=== PATIENT | female | born 2000 | race Caucasian/White ===

== ENCOUNTER 2021-05-08 18:26 | Emergency (ER) | payer OTHER ==
[2021-05-08 18:44] VITALS: BP 116/64; PULSE 80; RESP 16; TEMP 97.9
[2021-05-08 19:00] LABS: Appearance,Urine Clear (Clear); Bilirubin,Urine Negative (Negative); Blood,Urine Negative (Negative); Color,Urine Yellow; Glucose,Urine (UA) Negative (Negative); Ketones,Urine 3+ (Negative); Leukocyte Esterase,Urine Negative (Negative); Nitrite,Urine Negative (Negative); PH, Urine 6.5 (5.0-8.0); Protein,Urine Trace (Negative)
[2021-05-08 22:48] LABS: Basophils # (A) 0.1 k/uL (0-0.2); Basophils % (A) 1 %; Eosinophils # (A) 0.1 k/uL (0-0.7); Eosinophils % (A) 2 %; HCT 40.4 % (34.0-46.0); HGB 13.9 gm/dL (11.4-16.0); Lymphocytes # (A) 2.7 k/uL (1.0-4.8); Lymphocytes % (A) 27 %; MCHC 34.4 g/dL (31.0-37.0); Mean Platelet Volume 9.2; Monocytes # (A) 0.4 k/uL (0-1.0); Monocytes % (A) 4 %; Neutrophils # (A) 6.4 k/uL (1.3-7.7); Neutrophils % (A) 65 %; Platelet Count 220 k/uL (150-450); RBC 4.49 m/uL (3.80-5.40); RDW 13.1 % (11.5-15.5); WBC 9.8 k/uL (4.0-11.0)
--- NOTE | 2021-05-08 23:16 | US ---
EXAMINATION TYPE: Transabdominal DATE OF EXAM: 05/08/2021 11:08 PM COMPARISON: NONE CLINICAL HISTORY: vaginal bleeding, . Vaginal bleeding. Hx 2 miscarriages. A2. EXAM PERFORMED: Transabdominal (TA) EXAM MEASUREMENTS: GESTATIONAL AGE / DATING Physician Established: Not yet established. Dates by LMP: (9 weeks/4 days) EDC: 12/07/2021 Dates by First Scan: This is first scan. Dates by Current Scan for: (10 weeks/0 days) EDC: 12/04/2021 MATERNAL ANATOMY Uterus: 8.9 x 6.3 x 5.8 cm. Anteverted. Right Ovary: 2.8 x 1.9 x 1.4 cm. Left Ovary: 2.6 X 1.7 X 1.5 cm. Post CDS / Adnexa: Appear wnl. Presence of free fluid: None seen. Presence of corpus luteal cyst: Possible within right ovary-Anechoic area seen with peripheral vascul arity: 1.3 x 1.0 x 1.0 cm. Presence of subchorionic bleed: Possible. -Hypoechoic area seen adjacent to the gestational sac: 0.5 x 1.6 x 0.9 cm. GESTATION / SURVEY CRL: 3.14 cm. (10 weeks/0 days) Yolk Sac (normal less than 6mm): 4.3 Heart Rate: 174 bpm. Rhythm: ?Slightly high HR IUP: Viable IUP Date of LMP: 03/02/2021 Beta HcG (if available): Urine hCG available only-detected. IMPRESSION: Ultrasound gestational age is 10 weeks. Possible small subchorionic hemorrhage.
--- NOTE | 2021-05-09 02:35 | ED ---
General Adult HPI - General Chief complaint: Vaginal Bleeding Stated complaint: 9 wks preg/bleeding Time Seen by Provider: 05/08/21 21:54 Source: patient, RN notes reviewed, old records reviewed Mode of arrival: ambulatory Limitations: no limitations - History of Present Illness Initial comments: Patient is a 20-year-old female who is currently approximately 9 weeks has not followed up with her PCP presents emergency department over concern for vaginal spotting earlier. Has a history of 2 prior miscarriages which is why she came to the emergency department for further evaluation. States the spotting began this morning has not continued. Denies any current abdominal pain, cramping. Denies any nausea, vomiting. Tolerated by mouth intake. Denies any chest pain, shortness breath. His no other acute complaint at this time. To for follow-up with her MEDICAL CODING AUDITOR next week. Like to be evaluated. - Related Data Previous Rx's Medication Instructions Recorded Pnv No.95/Ferrous Fum/Folic AC 1 each PO DAILY #30 tablet 05/09/21 [ Multivitamin Tablet] Allergies Allergy/AdvReac Type Severity Reaction Status Date / Time No Known Allergies Allergy Verified 05/08/21 18:44 Review of Systems ROS Statement: Those systems with pertinent positive or pertinent negative responses have been documented in the HPI. Review of Systems: CONST: Denies fever EYES: Denies blurry vision ENT: Denies nasal congestion C/V: Denies Chest pain RESP: Denies shortness of breath GI: Denies abdominal pain : Denies dysuria SKIN: Denies rash. MSK: Denies joint pain. NEURO: Denies headache ROS Other: All systems not noted in ROS Statement are negative. Past Medical History Past Medical History: No Reported History History of Any Multi-Drug Resistant Organisms: None Reported Past Surgical History: No Surgical Hx Reported Past Psychological History: Anxiety, Depression Smoking Status: Current every day smoker Past Alcohol Use History: None Reported Past Drug Use History: None Reported General Exam - General Exam Comments Initial Comments: General: Appears in no acute distress. HEAD: Normal with no signs of head trauma. EYES: PERRLA, EOMI, conjunctiva normal, no discharge. ENT: Hearing grossly intact, normal oropharynx. RESPIRATORY: Clear breath sounds bilaterally. No wheezes, rales, or rhonchi. C/V: Regular rate and rhythm. S1 and S2 auscultated, no edema, peripheral pulses 2+ and intact throughout ABD: Abd is soft, nontender, nondistended EXT: Normal range of motion, no obvious deformity SKIN: No rashes or lesions observed on exposed skin. NEURO: Alert and oriented 4. Limitations: no limitations Course Vital Signs 05/08/21 18:42 Temperature 97.9 F Pulse Rate 80 Respiratory 16 Rate Blood Pressure 116/64 O2 Sat by Pulse 97 Oximetry Medical Decision Making - Medical Decision Making Based on the patient's presentation and physical exam, I do believe she had episodes of vaginal spotting earlier. She is concerned for possible miscarriage, but denies any recurrent episodes. Has no other acute complaints a t this time. At spotting can be normal , however we will obtain basic labs. Some also be obtained. She was in agreement this plan. Does not require any medications at this time. Is not taking vitamins and she'll be provided with prescription. Laboratory studies were unremarkable. Quantitative beta hCG was 50,000. Ultrasound reveals a viable intrauterine at approximately 10 weeks. There is also a probable small subchorionic hemorrhage. Blood type is O+. Vital signs remain stable and within normal limits at this time. I spoke to patient regarding the findings. Believe it is safer to be discharged home follow up with her PCP. She was in agreement this plan. She also has MEDICAL CODING AUDITOR follow up next week. I will provide the patient with a prescription for vitamins. I instructed the patient to follow up with their PCP in the next 3 days. I explained that the patient should return to the emergency department if they experience any worsening symptoms. Strict return precautions were discussed with the patient. The patient expressed understanding of these instructions. I answered all questions that the patient had. The patient was discharged home in good condition with their prescriptions and follow up information. - Lab Data Result diagrams: 05/08/21 22:30 Lab Results 05/08/21 05/08/21 05/08/21 Range/Units 18:51 18:51 22:25 WBC (4.0-11.0) k/uL RBC (3.80-5.40) m/uL Hgb (11.4-16.0) gm/dL Hct (34.0-46.0) % MCV (80.0-100.0) fL MCH (25.0-35.0) pg MCHC (31.0-37.0) g/dL RDW (11.5-15.5) % Plt Count (150-450) k/uL MPV Neutrophils % % Lymphocytes % % Monocytes % % Eosinophils % % Basophils % % Neutrophils # (1.3-7.7) k/uL Lymphocytes # (1.0-4.8) k/uL Monocytes # (0-1.0) k/uL Eosinophils # (0-0.7) k/uL Basophils # (0-0.2) k/uL HCG, Quant mIU/mL Urine Color Yellow Urine Appearance Clear (Clear) Urine pH 6.5 (5.0-8.0) Ur Specific [place] 1.020 (1.001-1.035) Urine Protein Trace H (Negative) Urine Glucose (UA) Negative (Negative) Urine Ketones 3+ H (Negative) Urine Blood Negative (Negative) Urine Nitrite Negative (Negative) Urine Bilirubin Negative (Negative) Urine Urobilinogen 2.0 (<2.0) mg/dL Ur Leukocyte Esterase Negative (Negative) Urine HCG, Qual Detected (Not Detectd) Blood Type O Positive Blood Type Confirm Blood Type Recheck No Previous Record Bld Type Recheck Status CABO Indicated Antibody Screen NEGATIVE Spec Expiration Date 05/11/2021 - 232405/08/21 05/08/21 05/08/21 Range/Units 22:25 22:30 22:30 WBC 9.8 (4.0-11.0) k/uL RBC 4.49 (3.80-5.40) m/uL Hgb 13.9 (11.4-16.0) gm/dL Hct 40.4 (34.0-46.0) % MCV 90.0 (80.0-100.0) fL MCH 31.0 (25.0-35.0) pg MCHC 34.4 (31.0-37.0) g/dL RDW 13.1 (11.5-15.5) % Plt Count 220 (150-450) k/uL MPV 9.2 Neutrophils % 65 % Lymphocytes % 27 % Monocytes % 4 % Eosinophils % 2 % Basophils % 1 % Neutrophils # 6.4 (1.3-7.7) k/uL Lymphocytes # 2.7 (1.0-4.8) k/uL Monocytes # 0.4 (0-1.0) k/uL Eosinophils # 0.1 (0-0.7) k/uL Basophils # 0.1 (0-0.2) k/uL HCG, Quant 53016.5 mIU/mL Urine Color Urine Appearance (Clear) Urine pH (5.0-8.0) Ur Specific [place] (1.001-1.035) Urine Protein (Negative) Urine Glucose (UA) (Negative) Urine Ketones (Negative) Urine Blood (Negative) Urine Nitrite (Negative) Urine Bilirubin (Negative) Urine Urobilinogen (<2.0) mg/dL Ur Leukocyte Esterase (Negative) Urine HCG, Qual (Not Detectd) Blood Type Blood Type Confirm O Positive Blood Type Recheck Bld Type Recheck Status Antibody Screen Spec Expiration Date Disposition Clinical Impression: Vaginal spotting, Disposition: HOME SELF-CARE Condition: Good Instructions (If sedation given, give patient instructions): Non-Threatening First Trimester Vaginal Bleed (ED) Prescriptions: Pnv No.95/Ferrous Fum/Folic AC [ Multivitamin Tablet] 1 each PO DAILY #30 tablet Is patient prescribed a controlled substance at d/c from ED?: No Referrals: None,Stated [Primary Care Provider] - 1-2 days
== END 2021-05-09 00:12 | disposition home or self-care (01) ==
LOC: EC 18:26
DX: O26.851 Spotting complicating pregnancy, first trimester (principal); O99.341 Other mental disorders complicating pregnancy, first trimester; F41.9 Anxiety disorder, unspecified; F32.A Depression, unspecified; F17.200 Nicotine dependence, unspecified, uncomplicated; Z3A.09 9 weeks gestation of pregnancy
CPT/HCPCS: 36415; 76801; 81003; 81025; 84702; 85025; 86850; 86900; 86901; 99284

== ENCOUNTER → 2024-08-17 | Outpatient (CLI) | payer OTHER ==
--- NOTE | 2024-08-17 10:32 | USB ---
Reason for Exam: Clinical finding. Technique: Method: Targeted. Findings: The area of palpable concern of the right breast, the axilla of the right breast and the retroareolar of the right breast were scanned. Technique utilized:US breast limited RT Image; Ultrasound imaging of: Area of concern, retroareolar region and axilla. No evidence for organizing fluid collection or mass. Overall Assessment: Negative, BI-RAD 1 Management: Screening Mammogram of both breasts at age 40. A clinical breast exam by your physician is recommended on an annual basis and results should be correlated with mammographic findings. This exam should not preclude additional follow-up of suspicious palpable abnormalities. Results were given to the patient verbally at the time of exam. [facility], , 08/17/2024 10:29 AM. Electronically signed and approved by: Yandel Romero DO
== END | disposition home or self-care (01) ==
LOC: RADUSWWP 10:13
PROVIDERS: ATTEND Family Medicine
DX: N63.10 Unspecified lump in the right breast, unspecified quadrant (principal)